=== PATIENT | female | born 1950 | race Caucasian/White ===

== ENCOUNTER 2024-05-16 09:42 | Emergency (ER) | payer MEDICARE, MEDICAID ==
[~2024-05-16] VITALS: Ht 162.6 cm; Wt 73.0 kg
[2024-05-16 09:44] VITALS: TEMP 36.7; O2SAT 100
[2024-05-16] MEDS: ASPIRIN 81MG TABLET PO ONE (10:30)
[2024-05-16 10:59] LABS: BASOPHILS % 0.5 % (0.0-2.0); EOSINOPHILS % 2.1 % (0.0-5.0); HEMATOCRIT. 38.9 % (36.0-48.0); HEMOGLOBIN. 12.6 g/dL (12.0-16.0); MEAN CORPUSCULAR HEMOGLOBIN 28.7 pg (28.0-32.0); MEAN CORPUSCULAR HGB CONC 32.2 g/dL (31.0-37.0); MEAN CORPUSCULAR VOLUME 88.9 fL (81.0-99.0); MEAN PLATELET VOLUME 8.3 fl (7.4-10.4); MONOCYTES % 6.4 % (2.0-8.0); PLATELET 300 x1000/uL (130-400); RED BLOOD CELL COUNT 4.38 mill/uL (4.2-5.4); RED CELL DISTRIBUTION WIDTH 13.6 % (11.6-14.6); WHITE BLOOD COUNT 8.4 x1000/uL (4.5-11.0)
[2024-05-16 11:07] LABS: CHLORIDE 107 mEq/L (98-107); POTASSIUM 3.8 mEq/L (3.5-5.1); SODIUM 142 mEq/L (136-145)
[2024-05-16 11:08] LABS: CALCIUM 9.3 mg/dL (8.7-10.4); CARBON DIOXIDE 26 mEq/L (21-32)
[2024-05-16 11:13] LABS: CREATININE 0.8 mg/dL (0.6-1.0); GLUCOSE 129 mg/dL (70-105); UREA NITROGEN BLOOD 20 mg/dL (9-23)
[2024-05-16 11:14] LABS: TROPONIN I HIGH SENSITIVITY 5 ng/L (3.0-34)
[2024-05-16 11:48] VITALS: BP 125/73; PULSE 64; RESP 16
[2024-05-16] MEDS: IBUPROFEN 600MG TABLET PO ONE (11:48)
== END 2024-05-16 12:07 | disposition home or self-care (01) ==
LOC: ER 09:42
DX: R07.9 Chest pain, unspecified (principal); R06.02 Shortness of breath; R53.1 Weakness; T50.B95A Adverse effect of other viral vaccines, initial encounter; I10 Essential (primary) hypertension
CPT/HCPCS: 36415; 71045; 80048; 83880; 84484; 85025; 93005; 99285